=== PATIENT | female | born 1960 | race Caucasian/White ===

== ENCOUNTER 2023-04-13 11:13 | Emergency (ER) | payer BC ==
[~2023-04-13] VITALS: Ht 152.4 cm; Wt 82.1 kg
--- NOTE | 2023-04-13 11:27 | NUR ---
PT TRIAGED AND PLACED IN ROOM 8. ENDORSED TO OTILIA ARMENTA. PT BIB WITH C/O OF CONSTIPATION, NO BM SINCE SUNDAY S/P R KNEE SURGERY AND HAS BEEN TAKING NORCO.
[2023-04-13 11:28] VITALS: BP_SYST 127
--- NOTE | 2023-04-13 11:28 | NUR ---
PT BIB . C/O CONSTIPATION ONSET OF 4 DAYS. PT STATES TO HAVE HAD R KNEE SURGERY ON SUNDAY AND HAS BEEN TAKING PRESCRIBED NORCOS AND HAS NOT BEEN ABLE TO HAVE A BM SINCE. PT DENIES TAKING LAXATIVES FOR RELIEF. PT STATES ABDOMINAL PAIN 04/28. PT DENIES SOB N/V/D/. PT AAOX4. VSS. PT TALKING FULL COMPLETE SENTENCES.
--- NOTE | 2023-04-13 11:29 | NUR ---
ER at bedside examining patient.
[2023-04-13] MEDS ORDERED: SODIUM PHOSPHATE,MONO-DIBASIC 133 ML ENEMA RC ONE (11:30)
--- NOTE | 2023-04-13 11:49 | NUR ---
ENEMA PERFORMED ON PT. PT TOLERATED WELL. PT VERBILIZED UNDERSTANDING OF ENEMA
[2023-04-13 11:53] LABS: BASOPHILS % (AUTO) 0.4 % (0.0-2.0); EOSINOPHILS # (AUTO) 0.3 K/uL (0.0-0.4); EOSINOPHILS % (AUTO) 3.9 % (0.0-4.0); HEMATOCRIT 41.6 % (36-48); HEMOGLOBIN 14.2 g/dL (12.0-16.0); LYMPHOCYTES % (AUTO) 11.3 % (20.5-51.5); MEAN CORPUSCULAR HEMOGLOBIN 29 pg (27-31); MEAN CORPUSCULAR HGB CONC 34 % (32-36); MEAN CORPUSCULAR VOLUME 86 fL (79.0-98.0); MONOCYTES # (AUTO) 0.5 K/uL (0.0-1.0); MONOCYTES % (AUTO) 5.8 % (1.7-9.3); NEUTROPHILS % (AUTO) 78.6 % (40.0-70.0); PLATELET COUNT (AUTO) 239 K/uL (130-430); RED BLOOD CELL COUNT(AUTO) 4.81 MIL/uL (4.2-6.2); RED CELL DISTRIBUTION WIDTH 13.8 % (9.0-15.0); WHITE BLOOD COUNT (AUTO) 8.9 K/uL (4.8-10.8)
[2023-04-13 12:04] LABS: CALCIUM 8.3 mg/dL (8.4-11.0); CREATININE 0.84 mg/dL (0.55-1.30)
[2023-04-13 12:08] LABS: ALBUMIN 3.8 g/dL (3.4-4.8); C-REACTIVE PROTEIN QUANT 1.7 mg/dL (0-0.5); TOTAL BILIRUBIN 0.8 mg/dL (0.0-1.0)
--- NOTE | 2023-04-13 12:09 | NUR ---
Pt seated to BSC with bowel movement. No s/s distress
--- NOTE | 2023-04-13 12:32 | NUR ---
Pt bowel movement provided relief Pt with spouse bedside.
[2023-04-13] MEDS ORDERED: MAGN296S8 PO (12:43)
--- NOTE | 2023-04-13 13:04 | NUR ---
Patient given written and verbal discharge instructions and verbalizes understanding. ER MD discussed with patient the results and treatment provided. Patient in stable condition. ID arm band removed. Rx of MAGNESIUM CITRATE given. Patient educated on pain management and to follow up with PMD. Opportunity for questions provided and answered. Medication side effect fact sheet provided.
[2023-04-13 13:05] VITALS: BP_SYST 127
== END 2023-04-13 13:04 | disposition home or self-care (01) ==
LOC: SED 11:13
DX: K59.00 Constipation, unspecified (principal); Z88.0 Allergy status to penicillin; Z88.8 Allergy status to other drugs, medicaments and biological substances
CPT/HCPCS: 36415; 74018; 80053; 82150; 83605; 83690; 85025; 86140; 99284